=== PATIENT | female | born 1960 | race African-American/Black ===

== ENCOUNTER 2019-04-05 06:29 | Emergency (ER) | payer BC, SELFPAY ==
[2019-04-05 06:58] LABS: #Basophils 0.1 thou/uL (0.0-0.2); #Eosinphils 0.1 thou/uL (0.0-0.7); #Lymphocytes 1.4 thou/uL (1.20-3.40); #Monocytes 0.9 thou/uL (0.11-0.59); %Basophils 0.9 % (0.0-1.0); %Lymphocytes 11.7 % (21.0-51.0); %Monocytes 8.1 % (0.0-10.0); %Neutrophils 78.2 % (42.0-75.0); Hemoglobin 11.6 g/dL (12.0-16.0); Mean Corpuscular HGB CONC 34.9 g/dL (32.0-36.0); Mean Corpuscular Hemoglobin 34.1 pg (27.0-31.0); Mean Corpuscular Volume 97.8 fL (78.0-98.0); Mean Platelet Volume 6.4 fL (7.4-10.4); Platelet Count 266 thou/uL (130-400); RBC Distribution Width 11.5 % (11.5-14.5); White Blood Cell (WBC) Count 11.5 thou/uL (4.8-10.8)
[2019-04-05 07:17] LABS: Bacteria/HPF None Seen HPF (None Seen); Bilirubin Negative (Negative); Blood, Urine 1+ (Negative); Clarity Clear (Clear); Glucose, Urine (Dipstick) Normal (Negative); Leukocyte Negative Leu/uL (Negative); Nitrite Negative (Negative); Protein, Urine (Dipstick) 20 mg/dL (Neg-Trace); RBC/HPF 0-3 HPF (0-3); Urobilinogen Normal mg/dL (Less than 2); WBC/HPF 0-3 HPF (0-3)
[2019-04-05 07:18] LABS: ALT (SGPT) 16 U/L (8-55); AST (SGOT) 18 U/L (5-34); Albumin 4.5 g/dL (3.5-5.0); Alkaline Phosphatase 59 U/L (40-110); Anion Gap 12 mmol/L (10-20); BUN (Urea Nitrogen) 11 mg/dL (9.8-20.1); Bilirubin, Total 0.3 mg/dL (0.2-1.2); Calc. Creatinine Clearance 0 mL/min (70-130); Carbon Dioxide 25 mmol/L (22-29); Chloride 106 mmol/L (98-107); Estimated GFR-MDRD 75; Globulin 2.9 g/dL (2.4-3.5); Glucose 129 mg/dL (70-105); Potassium 3.6 mmol/L (3.5-5.1); Protein, Total 7.4 g/dL (6.0-8.3); Sodium 139 mmol/L (136-145)
[2019-04-05] MEDS ORDERED: Acetaminophen 500 MG TAB ONE (07:32)
== END 2019-04-05 07:45 | disposition home or self-care (01) ==
LOC: ERS 06:29
DX: R19.7 Diarrhea, unspecified (principal); I10 Essential (primary) hypertension; E11.9 Type 2 diabetes mellitus without complications; E78.00 Pure hypercholesterolemia, unspecified; Z79.899 Other long term (current) drug therapy; Z79.84 Long term (current) use of oral hypoglycemic drugs
CPT/HCPCS: 36415; 80053; 81003; 81015; 85025; 87086; 99284

== ENCOUNTER 2019-04-07 18:16 | Observation (INO) | payer BC, SELFPAY ==
[2019-04-07 19:28] LABS: #Eosinphils 0.1 thou/uL (0.0-0.7); #Lymphocytes 2.1 thou/uL (1.20-3.40); #Neutrophils 4.9 thou/uL (1.40-6.50); %Basophils 0.3 % (0.0-1.0); %Eosinophils 1.6 % (0.0-10.0); %Lymphocytes 25.4 % (21.0-51.0); %Monocytes 11.8 % (0.0-10.0); Hemoglobin 9.6 g/dL (12.0-16.0); Mean Corpuscular HGB CONC 33.9 g/dL (32.0-36.0); Mean Corpuscular Hemoglobin 33.5 pg (27.0-31.0); Mean Corpuscular Volume 98.8 fL (78.0-98.0); Mean Platelet Volume 6.3 fL (7.4-10.4); Platelet Count 240 thou/uL (130-400); RBC Distribution Width 11.3 % (11.5-14.5); Red Blood Cell (RBC) Count 2.86 mill/uL (4.20-5.40); White Blood Cell (WBC) Count 8.1 thou/uL (4.8-10.8)
[2019-04-07 19:43] LABS: ALT (SGPT) 21 U/L (8-55); AST (SGOT) 23 U/L (5-34); Albumin 4.1 g/dL (3.5-5.0); Alkaline Phosphatase 52 U/L (40-110); Anion Gap 10 mmol/L (10-20); BUN (Urea Nitrogen) 11 mg/dL (9.8-20.1); Bilirubin, Total 0.2 mg/dL (0.2-1.2); Calc. Creatinine Clearance 0 mL/min (70-130); Calcium 8.9 mg/dL (7.8-10.44); Carbon Dioxide 29 mmol/L (22-29); Chloride 106 mmol/L (98-107); Estimated GFR-MDRD Greater than 90; Globulin 2.6 g/dL (2.4-3.5); Glucose 113 mg/dL (70-105); Protein, Total 6.7 g/dL (6.0-8.3); Sodium 142 mmol/L (136-145)
--- NOTE | 2019-04-07 22:21 | PDOC.HHP ---
Hospitalist HPI - History of Present Illness Dizziness History of Present Illness: 59 yo with DM-2, HTN, GERD, Dyslipidemia presented to ER due to dizziness. The current problems started on Friday when she started experiencing bright red blood in stools. She states that she was constipated prior to the episode. She denies any abdominal pain. She was seen in ER on Friday and discharged on PO antibiotics. She denies any change in her stools and hematochezia with the antibiotics. She states that she has stool followed by fresh blood. No melena or hematemesis. No N/V. No fever, chills, SOB. Today at 6 PM, when she was at work, she experienced sudden onset of lightheadedness with palpitations. She denies syncope. No sweating or nausea. No burning or pain with urination. Associated with a headache. Hospitalist ROS - Review of Systems All other systems reviewed; all pertinent +/- noted in HPI/Subj Hospitalist History - Past Medical History Source: patient Cardiac: reports: HTN, Hyperlipidemia Gastrointestinal: reports: GERD Endocrine: reports: Diabetes - Past Surgical History Other Surgical History: Carpal tunnel surgery - Family History Family History: reports: diabetes mellitus (mother) - Social History Smoking Status: Former smoker Tobacco Type: cigarettes Alcohol: reports: None Drugs: reports: none Activity level: independent ambulation - Exam General Appearance: NAD, awake alert Eye: PERRL, anicteric sclera ENT: normocephalic atraumatic, no oropharyngeal lesions, moist mucosa Neck: supple, symmetric, no JVD, no thyromegaly, no lymphadenopathy, no carotid bruit Heart: no murmur, no gallops, no rubs, normal peripheral pulses Heart - other findings: tachycardia present Respiratory: CTAB, no wheezes, no rales, no ronchi, normal chest expansion, no tachypnea, normal percussion Gastrointestinal: soft, non-tender, non-distended, normal bowel sounds, no palpable masses, no hepatomegaly, no splenomegaly, no bruit Extremities: no cyanosis, no clubbing, no edema Skin: normal turgor, no lesions, no rashes Neurological: cranial nerve grossly intact, normal sensation to touch, no weakness, no focal deficits Musculoskeletal: normal tone, normal strength, no muscle wasting Psychiatric: normal affect, normal behavior, A&O x 3 Hospitalist Results - Labs Result Diagrams: 04/07/19 19:12 04/07/19 19:12 Lab results: WBC 8.1 thou/uL (4.8-10.8) 04/07/19 19:12 Hgb 9.6 g/dL (12.0-16.0) L 04/07/19 19:12 Hct 28.3 % (36.0-47.0) L 04/07/19 19:12 MCV 98.8 fL (78.0-98.0) H 04/07/19 19:12 Plt Count 240 thou/uL (130-400) 04/07/19 19:12 Neutrophils % 61.0 % (42.0-75.0) 04/07/19 19:12 Sodium 142 mmol/L (136-145) 04/07/19 19:12 Potassium 3.0 mmol/L (3.5-5.1) L 04/07/19 19:12 Chloride 106 mmol/L (98-107) 04/07/19 19:12 Carbon Dioxide 29 mmol/L (22-29) 04/07/19 19:12 BUN 11 mg/dL (9.8-20.1) 04/07/19 19:12 Creatinine 0.77 mg/dL (0.6-1.1) 04/07/19 19:12 Glucose 113 mg/dL (70-105) H 04/07/19 19:12 Calcium 8.9 mg/dL (7.8-10.44) 04/07/19 19:12 Total Bilirubin 0.2 mg/dL (0.2-1.2) 04/07/19 19:12 AST 23 U/L (5-34) 04/07/19 19:12 ALT 21 U/L (8-55) 04/07/19 19:12 Alkaline Phosphatase 52 U/L (40-110) 04/07/19 19:12 Serum Total Protein 6.7 g/dL (6.0-8.3) 04/07/19 19:12 Albumin 4.1 g/dL (3.5-5.0) 04/07/19 19:12 - EKG Interpretation EKG: Sinus rhythm; No ST-T changes concerning for ischemia Hospitalist H&P A/P - Problem (1) Hematochezia Code(s): K92.1 - MELENA Status: Acute Assessment and Plan: Place under observation Likely diverticular bleed Had last colonoscopy at age 49 Had constipation prior to start of bleeding IV fluids Clear liquid diet GI consult. May need colonoscopy Monitor for bleeding Telemetry (2) Anemia Code(s): D64.9 - ANEMIA, UNSPECIFIED Status: Acute Qualifiers: Anemia type: other cause Other causes of anemia: acute posthemorrhagic Qualified Code(s): D62 - Acute posthemorrhagic anemia Assessment and Plan: Hb dropped from 11.6 to 9.6 in 2 days No indication for transfusion Monitor hemoglobin and transfuse PRN (3) DM (diabetes mellitus) Code(s): E11.9 - TYPE 2 DIABETES MELLITUS WITHOUT COMPLICATIONS Status: Chronic Qualifiers: Diabetes mellitus type: type 2 Diabetes mellitus rat exterminator insulin use: unspecified rat exterminator insulin use status Diabetes mellitus complication status : without complication Qualified Code(s): E11.9 - Type 2 diabetes mellitus without complications Assessment and Plan: SSI Clear liquid diet Monitor sugars and adjust regiment accordingly (4) HTN (hypertension) Code(s): I10 - ESSENTIAL (PRIMARY) HYPERTENSION Status: Chronic Qualifiers: Hypertension type: essential hypertension Qualified Code(s): I10 - Essential (primary) hypertension Assessment and Plan: Hold HTN meds due to near syncope IV fluids for now (5) GERD (gastroesophageal reflux disease) Code(s): K21.9 - GASTRO-ESOPHAGEAL REFLUX DISEASE WITHOUT ESOPHAGITIS Status: Chronic Qualifiers: Esophagitis presence: esophagitis presence not specified Qualified Code(s) : K21.9 - Gastro-esophageal reflux disease without esophagitis Assessment and Plan: Stable Resume home meds (6) Dyslipidemia Code(s): E78.5 - HYPERLIPIDEMIA, UNSPECIFIED Status: Chronic Assessment and Plan: Stable Statin therapy (7) Hypokalemia Code(s): E87.6 - HYPOKALEMIA Status: Acute Assessment and Plan: Replace PO & IV - Plan Plan: Code status - FULL CODE
[2019-04-07] MEDS ORDERED: Acetaminophen 325 MG TAB PO PRN (22:25)
[2019-04-07] MEDS ORDERED: Ondansetron PF 4 MG/2 ML Vial IVP PRN (22:25)
[2019-04-07] MEDS ORDERED: Dextrose 5% in Water 1,000 ML IV PRN (22:27)
[2019-04-07] MEDS ORDERED: HumaLOG 300 UNITS/3 ML VIAL SC PRN (22:27)
[2019-04-07] MEDS ORDERED: Dextrose 50% Abboject 50 ML SYRINGE SLOW IVP PRN (22:27)
[2019-04-07] MEDS ORDERED: Potassium Chloride 20 MEQ TAB PO SCH (22:30)
[2019-04-08 00:20] VITALS: BMI 30.1
[2019-04-08 05:17] LABS: #Eosinphils 0.2 thou/uL (0.0-0.7); #Lymphocytes 2.8 thou/uL (1.20-3.40); #Neutrophils 4.3 thou/uL (1.40-6.50); %Eosinophils 2.4 % (0.0-10.0); %Lymphocytes 33.2 % (21.0-51.0); %Monocytes 12.3 % (0.0-10.0); %Neutrophils 52.1 % (42.0-75.0); Hemoglobin 9.5 g/dL (12.0-16.0); Mean Corpuscular HGB CONC 33.9 g/dL (32.0-36.0); Mean Corpuscular Hemoglobin 33.3 pg (27.0-31.0); Mean Corpuscular Volume 98.2 fL (78.0-98.0); Mean Platelet Volume 6.4 fL (7.4-10.4); Platelet Count 240 thou/uL (130-400); RBC Distribution Width 11.3 % (11.5-14.5); Red Blood Cell (RBC) Count 2.86 mill/uL (4.20-5.40); White Blood Cell (WBC) Count 8.3 thou/uL (4.8-10.8)
[2019-04-08 05:44] LABS: ALT (SGPT) 21 U/L (8-55); AST (SGOT) 21 U/L (5-34); Albumin 3.8 g/dL (3.5-5.0); Alkaline Phosphatase 49 U/L (40-110); Anion Gap 11 mmol/L (10-20); BUN (Urea Nitrogen) 8 mg/dL (9.8-20.1); Bilirubin, Total 0.2 mg/dL (0.2-1.2); Calc. Creatinine Clearance 105 mL/min (70-130); Calcium 8.6 mg/dL (7.8-10.44); Carbon Dioxide 28 mmol/L (22-29); Chloride 108 mmol/L (98-107); Estimated GFR-MDRD Greater than 90; Globulin 2.4 g/dL (2.4-3.5); Glucose 108 mg/dL (70-105); Potassium 3.6 mmol/L (3.5-5.1); Protein, Total 6.2 g/dL (6.0-8.3); Sodium 143 mmol/L (136-145)
[2019-04-08 12:22] LABS: Iron 93 ug/dL (50-170); Iron Binding Capacity, Total 266 mcg/dL (265-497)
[2019-04-08 12:49] LABS: Ferritin 78.58 ng/mL (10-291)
--- NOTE | 2019-04-08 15:21 | CON ---
DATE OF CONSULTATION: 04/08/2019 REASON FOR CONSULTATION: Rectal bleeding. HISTORY OF PRESENT ILLNESS: Ms. Lord is a 59-year-old female who has had issues with chronic constipation. She had previously been evaluated in [place] about 10 years ago, at which time she had EGD and colonoscopy. She was told her esophagus was a little bit narrowed and she had a normal colon. She moved here recently. She was in the emergency room on the with some rectal bleeding, that occurred after she had been quite constipated, took a Fleet suppository and an enema, and at that time, she started having diarrhea and had some blood in her stool. In the emergency room, she was seen and they thought she had a low-grade temperature, maybe that she had an infection as she works in [employer]. They went ahead and sent her home on some Flagyl and Levaquin. It does not seem any stool studies were done at that time. She was mildly anemic, but she reports that is chronic for her. She returned to the emergency room last night. At that time, her complaint was of ongoing bleeding. She denies any abdominal pain. She did not have any cramps or tenesmus. She reported that the stool remained a little bit loose. She was having about 2 episodes of diarrhea with blood in it, then it became much worse. She initially thought her bleeding was her hemorrhoids, which she has had in the past, but then when she saw just blood in the toilet, she thought maybe something else was going on and came in to get checked out. Here, she has been afebrile. She has had no evidence of leukocytosis, although on the she had a white count of 11. Her hemoglobin was 11.6 on the , 9.6 yesterday, and 9.5 today. Her MCV is a little bit elevated at 98. Platelet count is 240. Presently, she denies any lower abdominal pain. She denies any cramping. She denies any nausea or vomiting. She states this does not feel like she really had infection. She has had no bleeding today. PAST MEDICAL HISTORY: 1. Reflux. 2. Dyslipidemia. 3. Chronic constipation. 4. Hemorrhoids. 5. Chronic anemia. 6. High blood pressure. 7. Diabetes. PAST SURGICAL HISTORY: 1. Carpal tunnel. 2. Upper and lower endoscopies about 10 years ago in [place]. FAMILY HISTORY: Diabetes and polyps in her mother. SOCIAL HISTORY: She is a former smoker. She does not drink. She does not use drugs. REVIEW OF SYSTEMS: Negative for chest pain, shortness of breath, dyspnea on exertion, dysphagia, odynophagia, weight loss, or melena. MEDICATIONS: At home: 1. Lactobacillus. 2. Iron. 3. Metformin. 4. Simvastatin. 5. Omeprazole. 6. Flagyl. 7. Cipro. 8. Vitamin D. 9. Lisinopril and hydrochlorothiazide. Medications here: 1. Tylenol. 2. IV fluid p.r.n. 3. Glucagon. 4. Insulin. 5. Zofran. PHYSICAL EXAMINATION: HEENT: Conjunctiva and sclerae are clear. NECK: Supple without adenopathy. LUNGS: Clear. HEART: Regular rhythm without murmurs. ABDOMEN: Soft and nontender. RECTAL: Deferred. LABORATORY STUDIES: As above. ASSESSMENT: 1. Rectal bleeding, likely hemorrhoidal outlet after enemas and suppositories for constipation. It is always possible that she had infectious colitis or diarrhea, but she really had no overt leukocytosis or severe cramps or pain or tenesmus, which usually goes along with that, so I think even though she works in the [employer] with [employer], it does not appear that she has a colitis. 2. Chronic anemia, per patient dating back to when she was a young woman. She has a little bit elevated MCV. I checked her iron stores, which are normal. Her B12 and folate, which were normal. This could be a thalassemia or different chronic anemia. RECOMMENDATIONS: With regard to her bleeding, we will plan for a colonoscopy tomorrow. She has not had a colonoscopy in 10 years. The risks, benefits, and possible complications were discussed with the patient. She wished to proceed. Job ID: [id number]
[2019-04-08] MEDS ORDERED: GoLYTELY 4,000 ml Bottle PO SCH (17:00)
--- NOTE | 2019-04-08 18:28 | PDOC.HOSPP ---
- Subjective Encounter Date: 04/08/19 Encounter Time: 18:25 Subjective: f/u for rectal bleeding likely hemorrhoidal with plans for colonoscopy in am. No recurrent bleeding noted and no PRBC's given. - Objective Vital Signs & Weight: Vital Signs (12 hours) Temp Pulse Resp BP Pulse Ox 04/08/19 15:18 98.6 F 70 15 131/63 95 04/08/19 11:59 98.4 F 78 15 120/61 96 04/08/19 07:55 98.1 F 75 15 117/58 L 100 Weight Admit Weight 170 lb Weight 170 lb I&O: 04/07/19 04/08/19 04/09/19 06:59 06:59 06:59 Intake Total 240 400 Output Total 300 Balance -60 400 Result Diagrams: 04/08/19 04:57 04/08/19 04:57 Additional Labs: Laboratory Tests 04/05/19 04/07/19 04/07/19 06:50 19:12 19:12 Hgb 11.6 L 9.6 L MCV 98.8 H Potassium 3.0 L Iron TIBC Ferritin Vitamin B12 Folate 04/08/19 04/08/19 04/08/19 11:43 11:43 11:43 Hgb MCV Potassium Iron 93 TIBC 266 Ferritin 78.58 Vitamin B12 1133 H Folate 17.80 EKG Reviewed by me: Yes (Tele - SR) Hospitalist ROS - Medication Medications: Active Medications Generic Name Dose Route Start Last Admin Trade Name Freq PRN Reason Stop Dose Admin Polyethylene Glycol/Electrolytes 4,000 ml 04/08/19 17:00 04/08/19 18:05 Golytely PO 04/08/19 23:59 4,000 ml NOW MEDINA Administration - Exam General Appearance: NAD, awake alert Eye: PERRL, anicteric sclera ENT: normocephalic atraumatic, no oropharyngeal lesions Neck: supple, symmetric, no JVD, no thyromegaly, no lymphadenopathy Heart: RRR, no murmur, no gallops, no rubs, normal peripheral pulses Respiratory: CTAB, no wheezes, no rales, no ronchi, normal chest expansion Gastrointestinal: soft, non-tender, non-distended, normal bowel sounds, no palpable masses Extremities: no cyanosis, no clubbing, no edema Skin: normal turgor, no lesions, no rashes Neurological: cranial nerve grossly intact, no new deficit Musculoskeletal: normal tone, normal strength, no muscle wasting Psychiatric: normal affect, A&O x 3 Hosp A/P (1) Hematochezia Code(s): K92.1 - MELENA Status: Acute Plan: Likely hemorrhoids, colonoscopy pending, serial H/H (2) Macrocytic anemia Code(s): D53.9 - NUTRITIONAL ANEMIA, UNSPECIFIED Status: Acute Plan: ? subacute, see #1 above (3) Hypokalemia Code(s): E87.6 - HYPOKALEMIA Status: Acute Plan: Resolved, serial K+ monitoring (4) GERD (gastroesophageal reflux disease) Code(s): K21.9 - GASTRO-ESOPHAGEAL REFLUX DISEASE WITHOUT ESOPHAGITIS Status: Chronic Qualifiers: Esophagitis presence: esophagitis presence not specified Qualified Code(s) : K21.9 - Gastro-esophageal reflux disease without esophagitis Plan: PPI (5) HTN (hypertension) Code(s): I10 - ESSENTIAL (PRIMARY) HYPERTENSION Status: Chronic Qualifiers: Hypertension type: essential hypertension Qualified Code(s): I10 - Essential (primary) hypertension Plan: Resume home BP regimen, serial monitoring - Plan plan discussed w/ family, out of bed/ambulate, DVT proph w/SCDs Stable currently Continue H/H monitoring Bowel prep tonight Colonoscopy in am AM lab: H/H Likely home in 24h
[2019-04-09 04:53] LABS: Hemoglobin 9.5 g/dL (12.0-16.0); Platelet Count 260 thou/uL (130-400)
[2019-04-09] MEDS ORDERED: Lisinopril/Hydrochlorothiazide 20 mg/12.5 mg Tablet PO SCH (09:00)
--- NOTE | 2019-04-09 09:34 | OP ---
DATE OF PROCEDURE: 04/09/2019 PROCEDURE PERFORMED: Colonoscopy with polypectomy. PREPROCEDURE DIAGNOSES: 1. Rectal bleeding after enemas. 2. Chronic history of mild anemia. 3. The patient was admitted with reported diarrhea with bleeding, again this was after enemas for severe constipation. POSTPROCEDURE DIAGNOSES: 1. Diminutive polyp in the ascending colon, removed by snare polypectomy. 2. Internal hemorrhoids, likely source of bleeding. 3. Otherwise normal colonoscopy. RECOMMENDATIONS: 1. Await histopathology. 2. Resume diet. 3. The patient can be discharged home. ANESTHESIA: TIVA. PROCEDURE IN DETAIL: After the patient was informed of the risks, benefits, and possible complications of colonoscopy, informed consent was obtained. The patient brought to endoscopy suite, where she was sedated in gradual fashion. Once she was comfortable, a bite-block was placed inside the orifice. The endoscope was advanced to the esophagus, stomach, and 2nd and 3rd portions of duodenum and slowly removed. There was good visualization of the mucosa. The prep was very good. There was a diminutive polyp in the ascending colon, removed by cold snare polypectomy. There was internal hemorrhoids. There was no active bleeding anywhere. The scope was removed. The patient tolerated the procedure well. There were no complications. At this time, we will sign off. She will go home on a daily fiber supplement. She has had chronic anemia and had an upper and lower endoscopies about 10 years in [facility] for this. Here, she has shown no signs of upper GI bleeding. She has had normal B12, iron, folate, ferritin. I suspected bleeding was related to trauma over her enema and very hard stools or constipation or history of intermittent rectal bleeding from her hemorrhoids. If we can be of any further assistance in her care, please do not hesitate to contact me. Job ID: [id number]
[2019-04-09] MEDS ORDERED: PROPOFOL 200 MG/20 ML VIAL ONE (10:05)
[2019-04-09 12:25] VITALS: BP 132/67; TEMP 98.1
--- NOTE | 2019-04-09 15:36 | DIS ---
DATE OF ADMISSION: 04/07/2019 DATE OF DISCHARGE: 04/09/2019 DISCHARGE DIAGNOSES: 1. Hematochezia secondary to internal hemorrhoids. 2. Macrocytic anemia, acute/subacute. 3. Hypokalemia, resolved. 4. Gastroesophageal reflux disease. 5. Hypertension, stable. CONSULTATIONS: Dr. Goddard with GI Service. PERTINENT LABORATORY AND X-RAY FINDINGS: Potassium ranged between 3.0 to 3.6. Serum iron level 93, TIBC 266, and ferritin 79. Vitamin B12 level 1133. Folate level 17.80. CBC showed a hemoglobin of 9.5, hematocrit 28.3, and MCV 98.2. Colonoscopy dated 04/09/2019 showed polyp in the ascending colon, status post snare polypectomy with internal hemorrhoids, likely source of the patient's bleeding. HOSPITAL COURSE: The patient was observed after initially presenting with bright red blood per rectum. The patient underwent serial H and H screening showing stable hemoglobin values during the hospital course. The patient received IV fluids and initiated on proton pump inhibitor. GI consultation was obtained, at which point, the patient underwent preparation and eventual colonoscopy exam showing internal hemorrhoids as the likely source of the patient's presentation. The patient underwent a snare polypectomy of a single polyp in the ascending colon with final pathology pending. Overall, the patient remained clinically stable during the hospital course, tolerating regular oral intake with stable vital signs. I have examined the patient at the time of discharge and discussed followup instructions. The patient verbalized understanding and in agreement and ready for discharge on 04/09/2019. DISCHARGE MEDICATIONS: 1. Ferrous sulfate 159 mg p.o. daily. 2. Lactobacillus one capsule p.o. daily. 3. Lisinopril/hydrochlorothiazide 20/12.5 mg one tablet p.o. daily. 4. Metformin 500 mg p.o. b.i.d. 5. Omeprazole 40 mg p.o. daily. 6. Simvastatin 20 mg p.o. at bedtime. FOLLOWUP: The patient may follow up with her primary care provider at [place], [place] after discharge. CONDITION ON DISCHARGE: Stable. ACTIVITY: Ad-krishna. DIET: Regular. CODE STATUS: Full. DISPOSITION: Home on 04/09/2019. Job ID: [id number]
== END 2019-04-09 13:02 | disposition home or self-care (01) ==
LOC: ERS 18:16 → 2SW 21:34
PROVIDERS: ADMIT Internal Medicine Sleep Medicine; ATTEND Family Medicine
PROC: 0DBK8ZZ Excision of Ascending Colon, Via Natural or Artificial Opening Endoscopic (ICD-10-PCS; principal; 2019-04-09)
DX: K63.5 Polyp of colon (principal); K64.8 Other hemorrhoids; K59.09 Other constipation; D62 Acute posthemorrhagic anemia; I10 Essential (primary) hypertension; E11.9 Type 2 diabetes mellitus without complications; E78.5 Hyperlipidemia, unspecified; E87.6 Hypokalemia; K21.9 Gastro-esophageal reflux disease without esophagitis; Z79.84 Long term (current) use of oral hypoglycemic drugs; Z79.899 Other long term (current) drug therapy; Z87.891 Personal history of nicotine dependence
CPT/HCPCS: 36415; 36416; 80053; 82607; 82728; 82746; 83540; 83550; 85014; 85018; 85025; 85049; 86850; 86900; 86901; 88305; 93005; G0378; J2704

== ENCOUNTER 2019-12-06 13:38 | Outpatient (CLI) | payer BC ==
--- NOTE | 2019-12-13 15:56 | MMO ---
Bilateral MAMMO Bilat Screen [facility]. CLINICAL HISTORY: Patient is 59 years old and is seen for screening. The patient has no family history of breast cancer. The patient has no personal history of cancer. VIEWS: The views performed were: bilateral craniocaudal with tomosynthesis and bilateral mediolateral oblique with tomosynthesis. FILMS COMPARED: The present examination has been compared to prior imaging studies performed at [facility] on 08/04/2014, 09/13/2015 and 09/13/2016. This study has been interpreted with the assistance of computer-aided detection. MAMMOGRAM FINDINGS: The breasts are heterogeneously dense, which could obscure a lesion on mammography. There are no suspicious masses, suspicious calcifications, or new areas of architectural distortion. IMPRESSION: THERE IS NO MAMMOGRAPHIC EVIDENCE OF MALIGNANCY. A ROUTINE FOLLOW-UP MAMMOGRAM IN 1 YEAR IS RECOMMENDED. THE RESULTS OF THIS EXAM WERE SENT TO THE PATIENT. ACR BI-RADS Category 1 - Negative MAMMOGRAPHY NOTE: 1. A negative mammogram report should not delay a biopsy if a dominant of clinically suspicious mass is present. 2. Approximately 10% to 15% of breast cancers are not detected by mammography. 3. Adenosis and dense breasts may obscure an underlying neoplasm. Reported by: JOSEFINA BRAUN MD Electonically Signed: [id number]
== END 2019-12-06 13:39 | disposition home or self-care (01) ==
LOC: BICMAMMO 13:38
PROVIDERS: ATTEND Physician Assistant
DX: Z12.31 Encounter for screening mammogram for malignant neoplasm of breast (principal)
CPT/HCPCS: 77063; 77067

== ENCOUNTER 2021-07-25 07:50 | Outpatient (CLI) | payer BC | END 2021-07-25 07:51 | disposition home or self-care (01) | LOC: BICMAMMO 07:50 | PROVIDERS: ATTEND Physician Assistant | DX: Z12.31 Encounter for screening mammogram for malignant neoplasm of breast (principal); Z13.820 Encounter for screening for osteoporosis; Z78.0 Asymptomatic menopausal state | CPT/HCPCS: 77063; 77067; 77080 ==

== ENCOUNTER 2024-03-16 08:01 | Outpatient (CLI) | payer BC | END 2024-03-16 08:02 | disposition home or self-care (01) | LOC: BICMAMMO 08:01 | PROVIDERS: ATTEND Family Medicine | DX: Z12.31 Encounter for screening mammogram for malignant neoplasm of breast (principal); Z13.820 Encounter for screening for osteoporosis; Z80.3 Family history of malignant neoplasm of breast | CPT/HCPCS: 77063; 77067; 77080 ==